=== PATIENT | male | born 1985 | race Caucasian/White ===

== ENCOUNTER → 2018-05-27 | Outpatient (CLI) | payer BC ==
--- NOTE | 2018-05-28 21:42 | RT HOLTER TEST ---
FACILITY: [facility] PATIENT NAME: FEDERICO FINNEGAN : [id number] MR: [id number]: [id number] EXAM DATE: ORDERING PHYSICIAN: ASHANTI POTTS TECHNOLOGIST: Colin Hook-up date: 2018-05-27 13:16:00 Duration: 22:03:00 Test Indications: SVT, SYNCOPE Medications: NONE LISTED [id number] QRS complexes 2 Ventricular ectopics which represent <1 % of total QRS comp. * Supraventricular ectopics which represent % of total QRS comp. * Paced QRS complexes which represent % of total QRS comp. VENTRICULAR ECTOPY 2 Isolated 0 Bigeminal Cycles 0 Couplets 0 Runs 0 Beats in Runs * Beats LONGEST at * BPM at :: -- * Beats FASTEST at * BPM at :: -- SUPRAVENTRICULAR ECTOPY * Isolated * Couplets * Runs * Beats in Runs * Beats LONGEST at * BPM at :: -- * Beats FASTEST at * BPM at :: -- HEART RATES 48 MIN at 01:03:15 2018-05-28 85 AVG 165 MAX at 21:41:48 2018-05-27 LONGEST RR 1.528 secs at 06:08:01 2018-05-28 S-T LEVELS Channel 1 -12.800 mm MIN at 13:16:00 2018-05-27 -12.800 mm MAX at 13:16:00 2018-05-27 Channel 2 -12.800 mm MIN at 13:16:00 2018-05-27 -12.800 mm MAX at 13:16:00 2018-05-27 Channel 3 -12.800 mm MIN at 13:16:00 2018-05-27 -12.800 mm MAX at 13:16:00 2018-05-27 Supraventricular tachycardia Occasional Premature ventricular complexes Confirmed by JULIANA CARL ([id number]) on 05/28/2018 9:41:30 PM Referred By: Overread By: JULIANA CARL
== END ==
LOC: RESP 12:52
PROVIDERS: ATTEND Internal Medicine Cardiovascular Disease
DX: I47.1 Supraventricular tachycardia (principal)
CPT/HCPCS: 93225; 93226

== ENCOUNTER → 2018-06-18 | Outpatient (CLI) | payer BC | LOC: US 01:25 | PROVIDERS: ATTEND Internal Medicine Cardiovascular Disease | DX: I07.1 Rheumatic tricuspid insufficiency (principal); I37.1 Nonrheumatic pulmonary valve insufficiency | CPT/HCPCS: 93306 ==